=== PATIENT | female | born 1930 | race African-American/Black ===

== ENCOUNTER 2017-02-26 10:11 | Observation (INO) | payer MEDICAID ==
[~2017-02-26] VITALS: Ht 152.4 cm; Wt 75.0 kg
[2017-02-26] VITALS (7 sets, daily range): BP systolic 117–215; BP diastolic 58–96; PULSE 73–100; RESP 15–36; TEMP 97.8–98.8; O2SAT 94–99
[~2017-02-26 10:11] MED LIST: 1-ME1LIQ PO; ALBU6.7H INH; ATEN-104 PO; PENT400 PO; ZITH250T PO
[2017-02-26] MEDS ORDERED: HYDR12.57 PO (10:24)
[2017-02-26] MEDS ORDERED: NIFE20 PO (10:24)
[2017-02-26] MEDS ORDERED: SODIUM CHLORIDE 0.9% FLUSH 10 ML FLUSH IVF PRN (11:00)
--- NOTE | 2017-02-26 11:11 | PD ---
HPI Chief Complaint: Cardiac Complaint Time Seen by Provider: 10:49 Travel History International Travel<30 days: No Contact w/Intl Traveler<30days: No Traveled to known affect area: No History of Present Illness HPI This is a 86 year old female with a history of hypertension, bronchitis, osteoarthritis, who presents here with her family for reports of cough and congestion. Patient reports yellow phlegm with her coughing concussion ingestion. Patient also reports tightness in her chest when she coughs. She denies any fevers. She does state that she has subjective chills. The patient' s been off of her diltiazem and Hydrocort thiazide for at least 2 days. She also has an inhaler that she is out of. Daughter states that she's also on a pain medicine however when I look at the name of the pain medicine, it does not appear to be one that we have here in the [place]. The patient is from [place] and is scheduled to go back April 15. As no nausea or diaphoresis. She does have swelling of her legs that goes down when she sleeps at night and elevates them. PFSH Past Medical History Cardiovascular Problems: Yes (hbp) Diminished Hearing: No Hypertension: Yes Tetanus Vaccination: > 5 Years Influenza Vaccination: No Menopausal: Yes Past Surgical History Surgical History: No Previous Surgery Social History Alcohol Use: No (pt denies) Tobacco Use: No Substance Use: No (pt denies) Allergies-Medications (Allergen,Severity, Reaction): Coded Allergies: No Known Allergies (Unverified , 02/26/17) Reported Meds & Prescriptions Reported Meds & Active Scripts Active Reported Hydrochlorothiazide 12.5 Mg Cap 12.5 Mg PO DAILY Nifedipine 20 Mg Cap 20 Mg PO BID Review of Systems Except as stated in HPI: all other systems reviewed are Neg General / Constitutional: Positive: Chills, No: Fever HENT: No: Headaches Cardiovascular: Positive: Chest Pain or Discomfort (pleuritic with cough under her breasts bilaterally.), No: Palpitations Respiratory: Positive: Cough (productive yellow phlegm), No: Shortness of Breath Gastrointestinal: No: Nausea, Vomiting, Abdominal Pain Genitourinary: No: Frequency, Dysuria Musculoskeletal: Positive: Arthralgias, Pain (joint pain worse in her hips. This is from her osteoarthritis.) Neurologic: No: Weakness, Dizziness, Headache Physical Exam Narrative GENERAL: Well-developed well-nourished female in no acute respiratory distress. SKIN: Focused skin assessment warm/dry. HEAD: Atraumatic. Normocephalic. EYES: No scleral icterus. No injection or drainage. ENT: No nasal bleeding or discharge. Mucous membranes pink and moist. NECK: Trachea midline. Supple. CARDIOVASCULAR: Regular rate and rhythm. No murmur appreciated. RESPIRATORY: No accessory muscle use. Clear to auscultation. Breath sounds equal bilaterally. GASTROINTESTINAL: Abdomen soft, non-tender, nondistended. MUSCULOSKELETAL: No obvious deformities. No clubbing. No cyanosis. Trace pretibial edema. NEUROLOGICAL: Awake and alert. No obvious cranial nerve deficits. Motor grossly within normal limits. Normal speech. Data Data Last Documented VS Vital Signs Date Time Temp Pulse Resp B/P Pulse Ox O2 Delivery O2 Flow Rate FiO2 02/26/17 10:50 17 98 Room Air 02/26/17 10:50 83 145/70 148/80 02/26/17 10:13 98.7 Orders Ckmb (Isoenzyme) Profile (02/26/17 10:49) Complete Blood Count With Diff (02/26/17 10:49) Comprehensive Metabolic Panel (02/26/17 10:49) Magnesium (Mg) (02/26/17 10:49) Prothrombin Time / Inr (Pt) (02/26/17 10:49) Act Partial Throm Time (Ptt) (02/26/17 10:49) Troponin I (02/26/17 10:49) Chest, Single Ap (02/26/17 10:49) Ecg Monitoring (02/26/17 10:49) Bilateral Bp Monitoring (02/26/17 10:49) Iv Access Insert/Monitor (02/26/17 10:49) Oximetry (02/26/17 10:49) Oxygen Administration (02/26/17 10:49) Sodium Chloride 0.9% Flush (Ns Flush) (02/26/17 11:00) CKMB (02/26/17 11:00) CKMB% (02/26/17 11:00) Blood Culture (02/26/17 12:34) Ceftriaxone Inj (Rocephin Inj) (02/26/17 12:45) Azithromycin Inj (Zithromax Inj) (02/26/17 12:45) Labs Laboratory Tests Test 02/26/17 11:00 White Blood Count 9.3 TH/MM3 Red Blood Count 4.01 MIL/MM3 Hemoglobin 10.9 GM/DL Hematocrit 33.6 % Mean Corpuscular Volume 83.8 FL Mean Corpuscular Hemoglobin 27.2 PG Mean Corpuscular Hemoglobin 32.4 % Concent Red Cell Distribution Width 19.5 % Platelet Count 318 TH/MM3 Mean Platelet Volume 8.1 FL Neutrophils (%) (Auto) 65.6 % Lymphocytes (%) (Auto) 26.7 % Monocytes (%) (Auto) 4.1 % Eosinophils (%) (Auto) 3.0 % Basophils (%) (Auto) 0.6 % Neutrophils # (Auto) 6.1 TH/MM3 Lymphocytes # (Auto) 2.5 TH/MM3 Monocytes # (Auto) 0.4 TH/MM3 Eosinophils # (Auto) 0.3 TH/MM3 Basophils # (Auto) 0.1 TH/MM3 CBC Comment AUTO DIFF Differential Comment AUTO DIFF CONFIRMED Platelet Estimate NORMAL Platelet Morphology Comment NORMAL Basophilic Stippling FAINT Ovalocytes 1+ Prothrombin Time 11.2 SEC Prothromb Time International 1.0 RATIO Ratio Activated Partial 25.0 SEC Thromboplast Time Sodium Level 139 MEQ/L Potassium Level 4.1 MEQ/L Chloride Level 104 MEQ/L Carbon Dioxide Level 29.4 MEQ/L Anion Gap 6 MEQ/L Blood Urea Nitrogen 19 MG/DL Creatinine 1.07 MG/DL Estimat Glomerular Filtration 59 ML/MIN Rate Random Glucose 201 MG/DL Calcium Level 9.5 MG/DL Magnesium Level 2.2 MG/DL Total Bilirubin 0.3 MG/DL Aspartate Amino Transf 18 U/L (AST/SGOT) Alanine Aminotransferase 20 U/L (ALT/SGPT) Alkaline Phosphatase 81 U/L Total Creatine Kinase 104 U/L Creatine Kinase MB 0.9 NG/ML Troponin I LESS THAN 0.02 NG/ML Total Protein 8.3 GM/DL Albumin 3.3 GM/DL [facility] Medical Decision Making Medical Screen Exam Complete: Yes Emergency Medical Condition: Yes Differential Diagnosis Bronchitis versus ACS versus CHF versus pneumonia Narrative Course 86-year-old female visiting from [place], presents here with complaints of cough with atypical chest pain. The patient has no evidence of acute ST elevation in her cardiac EKG. The patient's cardiac enzymes are within normal limits. White count is normal. Blood sugar is elevated at 200. Patient's x- ray shows questionable early infiltrate. Given her production and her cough and her yellow phlegm that worsening, I believe this is probable early pneumonia. Given the patient has no primary care here in town and has what appears to be new onset diabetes, I would recommend we bring her and are observation. We have started her on Rocephin and Zithromax. Should be started on I dehydration as well as have her blood sugar addressed by the admitting team. Diagnosis Primary Impression: early pneumonia Additional Impressions: Elevated blood sugar Hypertension Rufus Cary MD Feb 26, 2017 11:11
[2017-02-26 11:23] LABS: AUTOMATED NEUTROPHIL # 6.1 TH/MM3 (1.8-7.7); BASOPHIL # 0.1 TH/MM3 (0-0.2); BASOPHIL % 0.6 % (0.0-2.0); EOSINOPHIL # 0.3 TH/MM3 (0-0.4); HEMATOCRIT 33.6 % (35.0-46.0); LYMPH % 26.7 % (9.0-44.0); LYMPHOCYTE # 2.5 TH/MM3 (1.0-4.8); MEAN CELL VOLUME 83.8 FL (80.0-100.0); MEAN CORPUSCULAR HEMOGLOBIN 27.2 PG (27.0-34.0); MEAN CORPUSCULAR HGB CONC 32.4 % (32.0-36.0); MONO % 4.1 % (0.0-8.0); NEUT % 65.6 % (16.0-70.0); PLATELET COUNT 318 TH/MM3 (150-450); RED BLOOD COUNT 4.01 MIL/MM3 (4.00-5.30); RED CELL DISTRIBUTION WIDTH 19.5 % (11.6-17.2); WHITE BLOOD COUNT 9.3 TH/MM3 (4.0-11.0)
[2017-02-26 11:27] LABS: HEMO FLAGS AUTO DIFF
[2017-02-26 11:37] LABS: ALT (GPT) 20 U/L (10-53); ANION GAP 6 MEQ/L (5-15); AST (GOT) 18 U/L (15-37); BICARBONATE 29.4 MEQ/L (21.0-32.0); BLOOD UREA NITROGEN 19 MG/DL (7-18); CHLORIDE 104 MEQ/L (98-107); GLOMERULAR FILTRATION RATE 59 ML/MIN (>89); MAGNESIUM 2.2 MG/DL (1.5-2.5); POTASSIUM 4.1 MEQ/L (3.5-5.1); SODIUM (NA) 139 MEQ/L (136-145)
[2017-02-26 11:40] LABS: PROTHROMBIN TIME - PATIENT 11.2 SEC (9.8-11.6)
[2017-02-26 11:41] LABS: ALKALINE PHOSPHATASE 81 U/L (45-117); CREATINE KINASE 104 U/L (26-192); TOTAL BILIRUBIN ADULT 0.3 MG/DL (0.2-1.0)
[2017-02-26 11:55] LABS: CKMB 0.9 NG/ML (0.5-3.6)
[2017-02-26 12:09] LABS: OVALOCYTES 1+ (NORMAL)
[2017-02-26 12:11] LABS: PLATELET ESTIMATE SMEAR NORMAL (NORMAL); PLATELET MORPHOLOGY NORMAL (NORMAL); SCAN/DIFF AUTO DIFF CONFIRMED
--- NOTE | 2017-02-26 12:18 | RADRPT ---
EXAM DATE/TIME: 02/26/2017 10:54 [facility] COMPARISON: No previous studies available for comparison. INDICATIONS : Chest pain. MEDICAL HISTORY : Bronchitis SURGICAL HISTORY : None. ENCOUNTER: Initial ACUITY: 1 day PAIN SCORE: 6/10 LOCATION: Bilateral chest FINDINGS: The heart is enlarged. Bibasilar streakiness is noted consistent with atelectasis and/or infiltrate. The pulmonary vascular pattern is normal. Degenerative changes are noted throughout the thoracic s pine. Degenerative changes are also noted involving the shoulders bilaterally. CONCLUSION: 1. Mild cardiomegaly. 2. Bibasilar streakiness consistent with atelectasis and/or mild infiltrates. 3. Degenerative changes involving thoracic spine and bilateral shoulders. Roberto Cee MD on February 26, 2017 at 11:53 Board Certified Radiologist. This report was verified electronically.
[2017-02-26] MEDS ORDERED: AZITHROMYCIN INJ 500 MG in SODIUM CHLOR 0.9% 250 ML INJ 250 ML IV ONE (12:45)
[2017-02-26] MEDS ORDERED: cefTRIAXone INJ 1,000 MG in SODIUM CHLORIDE 0.9% INJ 100 ML IV ONE (12:45)
[2017-02-26] MEDS ORDERED: DEXTROSE 50% IN WATER 50 ML VIAL(D50) IV PRN (13:00)
[2017-02-26] MEDS ORDERED: GLUCAGON 1 MG/ML VIAL OTHER PRN (13:00)
[2017-02-26] MEDS ORDERED: ACETAMINOPHEN 325 MG TAB PO PRN (13:00)
[2017-02-26] MEDS ORDERED: SODIUM CHLORIDE 0.9% FLUSH 10 ML FLUSH IV FLUSH PRN (13:00)
[2017-02-26] MEDS ORDERED: RESP: ALBUTEROL 2.5 MG/IPRATROPIUM 0.5 MG NEB (PRN) INH (13:00)
[2017-02-26] MEDS ORDERED: ONDANSETRON HCL 4 MG/2 ML VIAL IV PRN (13:00)
[2017-02-26] MEDS: ENOXAPARIN SODIUM 40 MG/0.4 ML SYRINGE SQ SCH (13:24)
--- NOTE | 2017-02-26 13:58 | HHI.HP ---
[facility] No Primary Care Physician Admission Diagnosis pneumonia, new onset hyperglycemia, hypertension Diagnoses: (1) Pneumonia (2) Hypertension (3) Elevated blood sugar Chief Complaint: Cough, dyspnea Travel History International Travel<30 Days: No Contact w/Intl Traveler <30 Da: No Traveled to Known Affected Are: No History of Present Illness The patient is an 86-year-old female who presented to the emergency department with complaint of cough, dyspnea. This has been worsening over the last couple days. She has also been out of her blood pressure medications for at least 2 days. She uses an inhaler for chronic bronchitis/asthma, but has run out of that as well. She has chronic lower extremity swelling, which improves with elevating her legs. Denies chest pain. Denies fever, chills, night sweats. Review of Systems Constitutional: DENIES: Fever, Chills, Night Sweats Eyes: DENIES: Blurred vision, Vision loss Ears, nose, mouth, throat: DENIES: Hearing loss Respiratory: COMPLAINS OF: Cough, Shortness of breath, DENIES: Wheezing, Sputum production Cardiovascular: DENIES: Chest pain, Palpitations, Lower Extremity Edema Gastrointestinal: DENIES: Abdominal pain, Constipation, Diarrhea, Nausea, Vomiting Genitourinary: DENIES: Urinary frequency, Urinary incontinence, Urgency, Hematuria, Dysuria, Nocturia Musculoskeletal: DENIES: Joint pain, Muscle aches Integumentary: DENIES: Pruritus, Rash Hematologic/lymphatic: DENIES: Bruising Neurologic: DENIES: Headache Past Family Social History Past Medical History Hypertension Osteoarthritis Past Surgical History None Reported Medications HCTZ 12.5 mg daily Nifedipine 20 mg twice a day Unknown inhaler Allergies: Coded Allergies: No Known Allergies (Unverified , 02/26/17) Family History High blood pressure Asthma Social History Denies alcohol, tobacco, or illicit drug use. Physical Exam Vital Signs Vital Signs Date Time Temp Pulse Resp B/P Pulse Ox O2 Delivery O2 Flow Rate FiO2 02/26/17 13:29 99 21 02/26/17 13:00 97.8 73 16 142/78 98 Room Air 02/26/17 10:50 17 98 Room Air 02/26/17 10:50 98 Room Air 02/26/17 10:50 83 17 145/70 98 Room Air 148/80 02/26/17 10:29 93 18 98 Room Air 02/26/17 10:13 98.7 100 36 215/96 99 Room Air Physical Exam GENERAL: Elderly female in no acute distress. HEENT: Normocephalic, atraumatic. Pupils equal, round and reactive. Extraocular movements intact. No scleral icterus. No injection or drainage. Oropharynx is clear. Mucous membranes are moist. CARDIOVASCULAR: Regular rate and rhythm without murmurs, gallops, or rubs. RESPIRATORY: Clear to auscultation. No wheezes, rales, or rhonchi. Breathing is non-labored. GASTROINTESTINAL: Abdomen soft, non-tender, nondistended. EXTREMITIES: Trace bilateral lower extremity edema. No calf tenderness. PSYCH: Alert and oriented x 3. Laboratory Laboratory Tests Test 02/26/17 11:00 White Blood Count 9.3 Red Blood Count 4.01 Hemoglobin 10.9 Hematocrit 33.6 Mean Corpuscular Volume 83.8 Mean Corpuscular Hemoglobin 27.2 Mean Corpuscular Hemoglobin 32.4 Concent Red Cell Distribution Width 19.5 Platelet Count 318 Mean Platelet Volume 8.1 Neutrophils (%) (Auto) 65.6 Lymphocytes (%) (Auto) 26.7 Monocytes (%) (Auto) 4.1 Eosinophils (%) (Auto) 3.0 Basophils (%) (Auto) 0.6 Neutrophils # (Auto) 6.1 Lymphocytes # (Auto) 2.5 Monocytes # (Auto) 0.4 Eosinophils # (Auto) 0.3 Basophils # (Auto) 0.1 CBC Comment AUTO DIFF Differential Comment AUTO DIFF CONFIRMED Platelet Estimate NORMAL Platelet Morphology Comment NORMAL Basophilic Stippling FAINT Ovalocytes 1+ Prothrombin Time 11.2 Prothromb Time International 1.0 Ratio Activated Partial 25.0 Thromboplast Time Sodium Level 139 Potassium Level 4.1 Chloride Level 104 Carbon Dioxide Level 29.4 Anion Gap 6 Blood Urea Nitrogen 19 Creatinine 1.07 Estimat Glomerular Filtration 59 Rate Random Glucose 201 Calcium Level 9.5 Magnesium Level 2.2 Total Bilirubin 0.3 Aspartate Amino Transf 18 (AST/SGOT) Alanine Aminotransferase 20 (ALT/SGPT) Alkaline Phosphatase 81 Total Creatine Kinase 104 Creatine Kinase MB 0.9 Troponin I LESS THAN 0.02 Total Protein 8.3 Albumin 3.3 Date/Time Procedure Status Source Growth 02/26/17 12:45 Aerobic Blood Culture Received Blood Peripheral Pending 02/26/17 12:45 Anaerobic Blood Culture Received Blood Peripheral Pending Result Diagram: 02/26/17 1100 02/26/17 1100 Imaging Last Impressions Chest X-Ray 02/26/17 1049 Signed Impressions: Service Date/Time: Sunday, February 26, 2017 10:54 - CONCLUSION: 1. Mild cardiomegaly. 2. Bibasilar streakiness consistent with atelectasis and/or mild infiltrates. 3. Degenerative changes involving thoracic spine and bilateral shoulders. Roberto Cee MD Assessment and Plan Assessment and Plan 1. Cough, dyspnea: Likely early pneumonia. Chest x-ray shows apparent infiltrates. Continue antibiotics. Supplemental oxygen as needed. Bronchodilators as needed. 2. Hypertension: Patient has run out of her home medications. Will restart them here in the hospital and give a short-term prescription upon discharge. 3. DVT prophylaxis: Lovenox. 4. Hyperglycemia: Patient denies history of diabetes. Monitor Accu-Cheks and cover with sliding scale insulin. Check hemoglobin A1c. Major Schmid MD Feb 26, 2017 13:58
[2017-02-26] MEDS: INSULIN ASPART SUPPLEMENTAL SCALE SQ SCH ×2 (18:21→21:00)
[2017-02-26 21:29] LABS: HEMOGLOBIN A1a 1.2 %; HEMOGLOBIN A1b 1.7 %; HEMOGLOBIN Ao 84.9 %; HEMOGLOBIN LA1C 2.3 %; HEMOGLOBIN P3 3.8 %
[2017-02-26] MEDS ORDERED: NIFEdipine 20 MG CAP PO ONE (21:30)
[2017-02-26] MEDS: SODIUM CHLORIDE 0.9% FLUSH 10 ML FLUSH IV FLUSH SCH (21:44)
[2017-02-27 03:33] VITALS: BP 133/60; PULSE 76; RESP 16; TEMP 98.9; O2SAT 95
[2017-02-27 04:58] LABS: AUTOMATED NEUTROPHIL # 5.6 TH/MM3 (1.8-7.7); BASOPHIL # 0.1 TH/MM3 (0-0.2); BASOPHIL % 0.6 % (0.0-2.0); EOSINOPHIL # 0.4 TH/MM3 (0-0.4); EOSINOPHIL % 3.9 % (0.0-4.0); HEMATOCRIT 32.6 % (35.0-46.0); HEMO FLAGS AUTO DIFF; LYMPH % 27.2 % (9.0-44.0); LYMPHOCYTE # 2.4 TH/MM3 (1.0-4.8); MEAN CELL VOLUME 83.4 FL (80.0-100.0); MEAN CORPUSCULAR HEMOGLOBIN 27.2 PG (27.0-34.0); MEAN CORPUSCULAR HGB CONC 32.6 % (32.0-36.0); MONO % 6.4 % (0.0-8.0); NEUT % 61.9 % (16.0-70.0); PLATELET COUNT 303 TH/MM3 (150-450); RED CELL DISTRIBUTION WIDTH 19.5 % (11.6-17.2)
[2017-02-27 05:17] LABS: BICARBONATE 30.5 MEQ/L (21.0-32.0); POTASSIUM 4.3 MEQ/L (3.5-5.1)
[2017-02-27] MEDS: INSULIN ASPART SUPPLEMENTAL SCALE SQ SCH ×4 (06:03→21:12)
[2017-02-27 06:10] LABS: ACANTHOCYTES OCC (NORMAL); KERATOCYTES OCC (NORMAL); PLATELET ESTIMATE SMEAR NORMAL (NORMAL); PLATELET MORPHOLOGY NORMAL (NORMAL); SCAN/DIFF AUTO DIFF CONFIRMED
[2017-02-27 08:06] VITALS: BP 148/68; PULSE 76; RESP 18; TEMP 98.2; O2SAT 98
--- NOTE | 2017-02-27 08:08 | EKG ---
Date Performed: 02/26/2017 Time Performed: 13:51:17 PTAGE: 86 years EKG: Sinus rhythm NORMAL ECG PREVIOUS TRACING : 02/26/2017 10.40 DOCTOR: Francisco Javier Verdin Interpretating Date/Time 02/27/2017 08:01:19
--- NOTE | 2017-02-27 08:12 | EKG ---
Date Performed: 02/26/2017 Time Performed: 10:40:22 PTAGE: 86 years EKG: Sinus rhythm WITH OCCASIONAL SUPRAVENTRICULAR PREMATURE COMPLEXES BORDERLINE ECG PREVIOUS TRACING : 06/14/2015 21.25 DOCTOR: Francisco Javier Verdin Interpretating Date/Time 03/05/2017 06:48:14
[2017-02-27] MEDS: HYDROCHLOROTHIAZIDE 12.5 MG CAP PO SCH (08:41)
[2017-02-27] MEDS: SODIUM CHLORIDE 0.9% FLUSH 10 ML FLUSH IV FLUSH SCH ×2 (08:41→21:11)
[2017-02-27] MEDS: AZITHROMYCIN 250 MG TAB PO SCH (08:41)
[2017-02-27] MEDS: NIFEdipine 20 MG CAP PO SCH ×2 (08:41→21:11)
[2017-02-27 11:51] VITALS: BP 137/65; PULSE 83; RESP 21; TEMP 98.2; O2SAT 100
--- NOTE | 2017-02-27 12:12 | HHI.PR ---
Subjective Remarks Follow up for pneumonia. The patient reports continued cough, mostly nonproductive, with shortness of breath, worse on exertion. She reports mild improvement compared to yesterday but she does not feel ready for discharge. She states she tried to walk a few steps to bedside commode and became extremely dyspneic, relieved after resting. She denies any specific chest pains , however roman report chest tightness with exertion, also relieved by rest. She denies any fevers/chills. Denies any leg pain/swelling. Objective Vitals Vital Signs Date Time Temp Pulse Resp B/P Pulse Ox O2 Delivery O2 Flow Rate FiO2 02/27/17 11:51 98.2 83 21 137/65 100 02/27/17 08:06 98.2 76 18 148/68 98 02/27/17 03:33 98.9 76 16 133/60 95 02/26/17 23:40 98.8 84 15 117/58 97 02/26/17 21:06 98.8 86 20 185/89 94 02/26/17 14:35 98.6 87 18 174/81 98 02/26/17 13:29 99 21 02/26/17 13:00 97.8 73 16 142/78 98 Room Air I/O 02/26/17 02/26/17 02/26/17 02/27/17 02/27/17 02/27/17 07:00 15:00 23:00 07:00 15:00 23:00 Intake Total 240 ml Balance 240 ml Intake Oral 240 ml # Voids 1 Result Diagram: 02/27/17 0421 02/27/17 0429 Imaging Last Impressions Chest X-Ray 02/26/17 1049 Signed Impressions: Service Date/Time: Sunday, February 26, 2017 10:54 - CONCLUSION: 1. Mild cardiomegaly. 2. Bibasilar streakiness consistent with atelectasis and/or mild infiltrates. 3. Degenerative changes involving thoracic spine and bilateral shoulders. Roberto Cee MD Objective Remarks GENERAL: Well-nourished, well-developed elderly [facility] female patient in [facility]. SKIN: Warm and dry. No rash. HEENT: Normocephalic. Atraumatic. Pupils equal and round. Mucous membranes pink and moist. NECK: Supple. Trachea midline. CARDIOVASCULAR: Regular rate and rhythm. S1, S2 noted. No murmur appreciated. RESPIRATORY: No accessory muscle use. Decreased breath sounds throughout all lung wei, with minimal end expiratory wheezing. Breath sounds equal bilaterally. GASTROINTESTINAL: Abdomen soft, non-tender, nondistended. Normoactive bowel sounds x4. MUSCULOSKELETAL: No obvious deformities. Extremities without clubbing, cyanosis , or edema. NEUROLOGICAL: Awake and alert. No obvious cranial nerve deficits. Motor grossly within normal limits. Normal speech. PSYCHIATRIC: Appropriate mood and affect; insight and judgment normal. Medications and IVs Current Medications Medications (Trade) Dose Ordered Sig/Ashly Route Start Time Stop Time Status Last Admin (NS Flush) 2 ml UNSCH PRN IV FLUSH 02/26/17 13:00 Sodium Chloride 2 ml 2 ml BID IV FLUSH 02/26/17 21:00 02/27/17 08:41 (Rocephin Inj/NS Inj) 100 ml @ 200 mls/hr Q24H IV 02/27/17 13:00 02/27/17 14:16 (Zithromax) 500 mg DAILY PO 02/27/17 09:00 02/27/17 08:41 (Tylenol) 650 mg Q4H PRN PO 02/26/17 13:00 (Zofran Inj) 4 mg Q6H PRN IV 02/26/17 13:00 (Lovenox Inj) 40 mg Q24H SQ 02/26/17 14:00 02/27/17 14:16 (D50w (Vial) Inj) 50 ml UNSCH PRN IV 02/26/17 13:00 (Glucagon Inj) 1 mg UNSCH PRN OTHER 02/26/17 13:00 (Microzide) 12.5 mg DAILY PO 02/27/17 09:00 02/27/17 08:41 (Procardia) 20 mg BID PO 02/27/17 09:00 02/27/17 08:41 A/P Problem List: (1) Pneumonia ICD Code: J18.9 Status: Acute (2) Hypertension ICD Code: I10 Status: Acute (3) Elevated blood sugar ICD Code: R73.9 Status: Acute Assessment and Plan 86-year-old female with history of HTN and OA presents with a 2-3day history of cough and shortness of breath Community Acquired Pneumonia: presented with cough/dyspnea. CXR images reviewed , shows apparent infiltrates. Continue antibiotics with IV rocephin and po Azithro. O2 as needed. Start duonebs q8h ashly and q4h prn. Patient complains of some chest tightness, doubt PE however will check D-dimer, if elevated, will proceed with CT-PA. 1800hrs: patient's D-dimer elevated, will check CT-PA and start on full strength anticoagulation with Lovenox 70u sq bid for now until PE ruled out. Hypertension: Patient has run out of her home medications. Will restart HCTZ and Nifedipine in the hospital and give a short-term prescription upon discharge. BP better controlled today. Hyperglycemia: Patient denies history of diabetes. Monitor Accu-Cheks and cover with sliding scale insulin. Hemoglobin A1c 5.9. DVT prophylaxis: Lovenox. Discharge Planning Likely discharge tomorrow if symptoms continue to improve. Lashawn Nelosn PA-C Feb 27, 2017 12:11
[2017-02-27] MEDS ORDERED: cefTRIAXone INJ 1,000 MG in SODIUM CHLORIDE 0.9% INJ 100 ML IV SCH (13:00)
[2017-02-27] MEDS: ENOXAPARIN SODIUM 40 MG/0.4 ML SYRINGE SQ SCH (14:16)
[2017-02-27 15:36] VITALS: BP 123/59; PULSE 79; RESP 17; TEMP 98; O2SAT 97
[2017-02-27] MEDS ORDERED: RESP: ALBUTEROL 2.5 MG/IPRATROPIUM 0.5 MG NEB (SCH) NEB ONE (16:30)
[2017-02-27] MEDS: DOCUSATE SODIUM 50 MG/SENNA 8.6 MG TAB PO SCH (18:41)
[2017-02-27] MEDS ORDERED: IOHEXOL 350 MG/ML 10 ML VIAL (for RAD DIAG) IV ONE (19:08)
--- NOTE | 2017-02-27 19:23 | RADRPT ---
EXAM DATE/TIME: 02/27/2017 19:05 [facility] COMPARISON: CHEST SINGLE AP, February 26, 2017, 10:54. INDICATIONS : Cough with dyspnea IV CONTRAST: 65 cc Omnipaque 350 (iohexol) IV RADIATION DOSE: 17.14 CTDIvol (mGy) MEDICAL HISTORY : Hypertension. SURGICAL HISTORY : None. ENCOUNTER: Initial ACUITY: 1 day PAIN SCALE: 0/10 LOCATION: chest TECHNIQUE: Volumetric scanning of the chest was performed using a pulmonary embolism protocol MIP images were re constructed. Using automated exposure control and adjustment of the mA and/or kV according to patien t size, radiation dose was kept as low as reasonably achievable to obtain optimal diagnostic quality images. DICOM format image data is available electronically for review and comparison. FINDINGS: PULMONARY ARTERIES: No filling defects are seen in the pulmonary arteries through the segmental level. LUNGS: There is no consolidation or pneumothorax . No concerning pulmonary nodule is visualized. Mild scarr ing. PLEURAE: There is no pleural thickening or pleural effusion. MEDIASTINUM: There is good visualization of the great vessels of the middle mediastinum. No evidence of mediastin al or hilar adenopathy/mass. MUSCULOSKELETAL: Within normal limits for patient age. MISCELLANEOUS: The visualized upper abdominal organs demonstrate no acute abnormality. There is gallstones. CONCLUSION: 1. No evidence of pulmonary embolism. 2. No evidence of consolidation. 3. Small gallstones. Hank Bustos MD on February 27, 2017 at 19:17 Board Certified Radiologist. This report was verified electronically.
[2017-02-27 20:00] VITALS: BP 173/78; PULSE 77; RESP 18; TEMP 98.1; O2SAT 98
[2017-02-27] MEDS ORDERED: ENOXAPARIN SODIUM 80 MG/0.8 ML SYRINGE SQ SCH (20:00)
[2017-02-27] MEDS: RESP: ALBUTEROL 2.5 MG/IPRATROPIUM 0.5 MG NEB (SCH) NEB (20:32)
[2017-02-27 23:56] VITALS: BP 131/60; PULSE 83; RESP 16; TEMP 98.1; O2SAT 95
[2017-02-28] MEDS: RESP: ALBUTEROL 2.5 MG/IPRATROPIUM 0.5 MG NEB (SCH) NEB ×2 (04:15→07:12)
[2017-02-28 04:50] VITALS: BP 135/63; PULSE 80; RESP 18; TEMP 97.8; O2SAT 97
[2017-02-28] MEDS: DOCUSATE SODIUM 50 MG/SENNA 8.6 MG TAB PO SCH (05:10)
[2017-02-28] MEDS: INSULIN ASPART SUPPLEMENTAL SCALE SQ SCH (05:47)
[2017-02-28 07:12] VITALS: O2SAT 98
[2017-02-28 07:44] VITALS: BP 134/60; PULSE 85; RESP 16; TEMP 99.2; O2SAT 95
--- NOTE | 2017-02-28 08:12 | HHI.PR ---
Subjective Remarks Follow-up for pneumonia. The patient reports that shortness of breath has improved. She's been out of bed and ambulating. She denies any fevers or chills. She still has a cough that is productive with white sputum. She reports that the breathing treatments have helped. She feels comfortable going home today. Objective Vitals Vital Signs Date Time Temp Pulse Resp B/P Pulse Ox O2 Delivery O2 Flow Rate FiO2 02/28/17 07:44 99.2 85 16 134/60 95 02/28/17 07:12 98 02/28/17 04:50 97.8 80 18 135/63 97 02/27/17 23:56 98.1 83 16 131/60 95 02/27/17 20:00 98.1 77 18 173/78 98 02/27/17 15:36 98.0 79 17 123/59 97 02/27/17 11:51 98.2 83 21 137/65 100 I/O 02/27/17 02/27/17 02/27/17 02/28/17 02/28/17 02/28/17 07:00 15:00 23:00 07:00 15:00 23:00 Intake Total 820 ml Balance 820 ml Intake Oral 720 ml IV Total 100 ml # Voids 2 2 Result Diagram: 02/27/17 0421 02/27/[address] Angiography 02/27/17 0000 Signed Impressions: Service Date/Time: January 19:05 - CONCLUSION: 1. No evidence of pulmonary embolism. 2. No evidence of consolidation. 3. Small gallstones. Hank Bustos MD Chest X-Ray 02/26/17 1049 Signed Impressions: Service Date/Time: Sunday, February 26, 2017 10:54 - CONCLUSION: 1. Mild cardiomegaly. 2. Bibasilar streakiness consistent with atelectasis and/or mild infiltrates. 3. Degenerative changes involving thoracic spine and bilateral shoulders. Roberto Cee MD Objective Remarks GENERAL: Well-developed well-nourished. In no acute distress. SKIN: Warm and dry. No lesions noted. HEENT: Normocephalic. Pupils equal and round. Mucous membranes pink and moist. CARDIOVASCULAR: Regular rate and rhythm. No murmur appreciated. RESPIRATORY: No accessory muscle use. Clear to auscultation. Diminished breath sounds in all lung wei bilaterally. No wheezing or crackles auscultated. GASTROINTESTINAL: Abdomen soft, non-tender, nondistended. Bowel sounds x4. MUSCULOSKELETAL: No obvious deformities. No clubbing or cyanosis. No edema. NEUROLOGICAL: Awake and alert. No focal neurological deficits. Moves upper and lower extremities spontaneously. Normal speech. PSYCHIATRIC: Appropriate mood and affect; insight and judgment normal. A/P Problem List: (1) Pneumonia ICD Code: J18.9 Status: Acute (2) Hypertension ICD Code: I10 Status: Acute (3) Elevated blood sugar ICD Code: R73.9 Status: Acute Assessment and Plan 86-year-old female with history of HTN and OA presents with a 2-3day history of cough and shortness of breath Community Acquired Pneumonia: presented with cough/dyspnea. CXR shows apparent infiltrates. Continue antibiotics, change to oral. Given duo nebs, continue albuterol MDI. D-dimer was mildly elevated, checked pulmonary angiogram. CT chest showed no PE or consolidation, DC Lovenox. Hypertension: Patient ran out of her home medications. Restarted HCTZ and Nifedipine with good effect, prescriptions upon discharge. Hyperglycemia: Mild. Patient denies history of diabetes. Hemoglobin A1c 5.9. Monitor Accu-Cheks and cover with sliding scale insulin while admitted. DVT prophylaxis: Lovenox. Discharge Planning Discharge patient to home Condition on discharge: Improved Heart healthy Diet as tolerated Regular activity Rx written: Azithromycin, Ceftin, HCTZ, nifedipine, albuterol MDI Follow-up with primary care physician Deshawn Morrison Feb 28, 2017 08:11
[2017-02-28] MEDS ORDERED: HYDR12.57 PO (08:15)
[2017-02-28] MEDS ORDERED: ALBUAER3 INH (08:15)
[2017-02-28] MEDS ORDERED: AZIT250T3 PO (08:15)
[2017-02-28] MEDS ORDERED: NIFE20 PO (08:15)
[2017-02-28] MEDS ORDERED: CEFU1TAB20 PO (08:15)
[2017-02-28] MEDS: HYDROCHLOROTHIAZIDE 12.5 MG CAP PO SCH (08:43)
[2017-02-28] MEDS: NIFEdipine 20 MG CAP PO SCH (08:44)
[2017-02-28] MEDS: SODIUM CHLORIDE 0.9% FLUSH 10 ML FLUSH IV FLUSH SCH (08:44)
[2017-02-28] MEDS: AZITHROMYCIN 250 MG TAB PO SCH (08:44)
== END 2017-02-28 10:15 | disposition home or self-care (01) ==
LOC: NEPC 10:11 → NEDA 13:04 → NEPGCP 14:28
PROVIDERS: ADMIT Hospitalist; ATTEND Hospitalist
DX: R05 Cough (principal); J18.9 Pneumonia, unspecified organism; I11.9 Hypertensive heart disease without heart failure; I51.7 Cardiomegaly; R73.9 Hyperglycemia, unspecified; M79.89 Other specified soft tissue disorders; R91.8 Other nonspecific abnormal finding of lung field; K80.20 Calculus of gallbladder without cholecystitis without obstruction; J45.909 Unspecified asthma, uncomplicated; M19.90 Unspecified osteoarthritis, unspecified site; Z79.899 Other long term (current) drug therapy
CPT/HCPCS: 71010; 71275; 80048; 80053; 82550; 82552; 82948; 83036; 83735; 84484; 85025; 85379; 85610; 85730; 87040; 93005; 94640; 94664; 94667; 94668; 96374; 96375; 97162; 99285; G0378; G8987; G8988; J0456; J0696; J1650; J1815; J7050; Q9967